=== PATIENT | female | born 1930 | race Caucasian/White ===

== ENCOUNTER → 2017-09-26 | Outpatient (CLI) | payer MEDICARE, OTHER | LOC: M RAD 12:31 | DX: R79.1 Abnormal coagulation profile (principal); R07.9 Chest pain, unspecified | CPT/HCPCS: 71046 ==

== ENCOUNTER 2018-02-25 07:21 | Day surgery (SDC) | payer MEDICARE, OTHER ==
[~2018-02-25 07:21] MED LIST: ACETAMINOPHEN 325 MG TAB PO; PHENYLEPHRINE HCL 10 % OPHTH. SOL 5ML OS; PROPARACAINE 0.5% OPHTH SOL 15ML OS
[2018-02-25] MEDS: TROPICAMIDE 1% OPHTH SOLN 2ML OS (07:48)
[2018-02-25] MEDS: PHENYLEPHRINE 2.5% OPHTH SOL 2ML OS (07:48)
[2018-02-25] MEDS: OFLOXACIN 0.3 % (OCUFLOX) OPTH SOL 5ML OS (07:48)
[2018-02-25] MEDS: LIDOCAINE 3.5 % 1ML OPHTH TOPICAL GEL OU (07:48)
[2018-02-25] MEDS: CYCLOPENTOLATE 2% OPHTH SOLN 2ML BTL OS (07:48)
[2018-02-25] MEDS: HEALON DUET PRO(HEALON 10MG/ML 0.55ML & HEALON ENDOCOAT 30MG/ML 0.85ML) As Ordered (09:53)
[2018-02-25] MEDS: BALANCED SALT IRRIGATION SOLUTION 500ML BAG (FOR OR EYE MACHINE) As Ordered (09:53)
[2018-02-25] MEDS: CEFUROXIME 1MG/0.1ML INTRACAMERAL INJ As Ordered (09:53)
[2018-02-25] MEDS: LIDOCAINE 1% SDV 5 ML VIAL As Ordered (09:53)
[2018-02-25] MEDS ORDERED: fentaNYL 100 MCG/2 ML INJECTION (J3010) As Ordered (10:14)
[2018-02-25] MEDS ORDERED: MIDAZOLAM INJ 2 MG/2 ML VIAL (J2250) As Ordered (10:14)
[2018-02-25] MEDS: AcetaZOLAMIDE 500 MG ER CAP PO (10:30)
[2018-02-25] MEDS ORDERED: TRIMETHOBENZAMIDE 300 MG CAP PO (10:30)
[2018-02-25] MEDS ORDERED: KETOROLAC 0.5% OPHTH SOLN OS (10:30)
[2018-02-25] MEDS ORDERED: POVIDONE-IODINE 5% OPHTH PREP SOL 30ML As Ordered (13:06)
== END 2018-02-25 11:00 | disposition home or self-care (01) ==
LOC: M SDC 07:21
DX: H25.12 Age-related nuclear cataract, left eye (principal); I10 Essential (primary) hypertension; K21.9 Gastro-esophageal reflux disease without esophagitis; Z79.899 Other long term (current) drug therapy; Z79.82 Long term (current) use of aspirin; Z88.8 Allergy status to other drugs, medicaments and biological substances
CPT/HCPCS: 66984

== ENCOUNTER 2018-03-18 09:59 | Day surgery (SDC) | payer MEDICARE, OTHER ==
[~2018-03-18 09:59] MED LIST changes: +MIDAZOLAM INJ 2 MG/2 ML VIAL (J2250) As Ordered; +PHENYLEPHRINE HCL 10 % OPHTH. SOL 5ML OD; -PHENYLEPHRINE HCL 10 % OPHTH. SOL 5ML OS; +PROPARACAINE 0.5% OPHTH SOL 15ML OD; -PROPARACAINE 0.5% OPHTH SOL 15ML OS; +fentaNYL 100 MCG/2 ML INJECTION (J3010) As Ordered
[2018-03-18] MEDS: OFLOXACIN 0.3 % (OCUFLOX) OPTH SOL 5ML OD (11:15)
[2018-03-18] MEDS: LIDOCAINE 3.5 % 1ML OPHTH TOPICAL GEL OU (11:15)
[2018-03-18] MEDS: TROPICAMIDE 1% OPHTH SOLN 2ML OD (11:15)
[2018-03-18] MEDS: PHENYLEPHRINE 2.5% OPHTH SOL 2ML OD (11:15)
[2018-03-18] MEDS: CYCLOPENTOLATE 2% OPHTH SOLN 2ML BTL OD (11:20)
[2018-03-18] MEDS: BALANCED SALT IRRIGATION SOLUTION 500ML BAG (FOR OR EYE MACHINE) As Ordered (12:27)
[2018-03-18] MEDS: CEFUROXIME 1MG/0.1ML INTRACAMERAL INJ As Ordered (12:28)
[2018-03-18] MEDS: LIDOCAINE 1% SDV 5 ML VIAL As Ordered (12:28)
[2018-03-18] MEDS: HEALON DUET PRO(HEALON 10MG/ML 0.55ML & HEALON ENDOCOAT 30MG/ML 0.85ML) As Ordered (12:28)
[2018-03-18] MEDS ORDERED: TRIMETHOBENZAMIDE 300 MG CAP PO (13:00)
[2018-03-18] MEDS: AcetaZOLAMIDE 500 MG ER CAP PO (13:10)
[2018-03-18] MEDS: KETOROLAC 0.5% OPHTH SOLN OD (13:10)
== END 2018-03-18 13:25 | disposition home or self-care (01) ==
LOC: M SDC 09:59
DX: H25.11 Age-related nuclear cataract, right eye (principal); I10 Essential (primary) hypertension; I25.10 Atherosclerotic heart disease of native coronary artery without angina pectoris; K59.00 Constipation, unspecified; K57.32 Diverticulitis of large intestine without perforation or abscess without bleeding; K21.9 Gastro-esophageal reflux disease without esophagitis; R23.3 Spontaneous ecchymoses; M19.90 Unspecified osteoarthritis, unspecified site; M54.9 Dorsalgia, unspecified; R20.0 Anesthesia of skin; F41.9 Anxiety disorder, unspecified; F32.9 Major depressive disorder, single episode, unspecified; R51 Headache; G47.9 Sleep disorder, unspecified; Z88.5 Allergy status to narcotic agent; Z88.6 Allergy status to analgesic agent; Z88.8 Allergy status to other drugs, medicaments and biological substances; Z79.899 Other long term (current) drug therapy; Z79.82 Long term (current) use of aspirin; Z87.820 Personal history of traumatic brain injury; Z87.440 Personal history of urinary (tract) infections; Z87.442 Personal history of urinary calculi
CPT/HCPCS: 66984

== ENCOUNTER → 2018-06-30 | Outpatient (CLI) | payer MEDICARE, OTHER ==
[~2018-06-30] MED LIST changes: -ACETAMINOPHEN 325 MG TAB PO; +ASPI1TAB PO; +ATIV1TAB7 PO; +CARV3.12 PO; +DULC5TAB PO; -MIDAZOLAM INJ 2 MG/2 ML VIAL (J2250) As Ordered; +PANT40TA3 PO; -PHENYLEPHRINE HCL 10 % OPHTH. SOL 5ML OD; -PROPARACAINE 0.5% OPHTH SOL 15ML OD; +TEMA15CA2 PO; +TRAM50TA2 PO; +XALA0.007 OU; -fentaNYL 100 MCG/2 ML INJECTION (J3010) As Ordered
== END ==
LOC: M LAB 15:45
PROVIDERS: ATTEND Ophthalmology
DX: I77.6 Arteritis, unspecified (principal)

== ENCOUNTER → 2018-07-29 | Outpatient (REF) | payer MEDICARE, OTHER ==
[~2018-07-29] MED LIST changes: -ASPI1TAB PO; +ASPI81TA26 PO
== END ==
LOC: M LAB REF 17:26
PROVIDERS: ATTEND Internal Medicine Nephrology
DX: N39.0 Urinary tract infection, site not specified (principal)

== ENCOUNTER 2018-11-02 08:49 | Day surgery (SDC) | payer OTHER ==
[~2018-11-02] VITALS: Ht 165.1 cm; Wt 53.5 kg
[~2018-11-02 08:49] MED LIST changes: +CYAN1000VL IM; +DICY20TA11 PO; +LIDOCAINE 2% INJ 100 MG/5 ML SDV (FOR ANES.) As Ordered ONE; +NEXI20CA PO; +NS 1,000 ML IV ONE; +PROPOFOL 200 MG/20 ML VIAL As Ordered ONE; +SERT25TA88 PO
--- NOTE | 2018-11-02 10:52 | ROOR ---
Patient Name: Kathy Renteria Procedure Date: 11/02/2018 9:56 AM Date of : 1930 Age: 88 Room: [facility] Gender: Female Note Status: Finalized Procedure: Upper GI endoscopy Indications: Dyspepsia, Weight loss Providers: Adonay Mccollum MD Referring MD: Dillon Boyd MD Requesting Provider: Medicines: Monitored Anesthesia Care Complications: No immediate complications. Procedure: Pre-Anesthesia Assessment: - Prior to the procedure, a History and Physical was performed, and patient medications and allergies were reviewed. The patient is competent. The risks and benefits of the procedure and the sedation options and risks were discussed with the patient. All questions were answered and informed consent was obtained. Patient identification and proposed procedure were verified by the physician, the nurse and the anesthesiologist in the procedure room. Mental Status Examination: alert and oriented. Airway Examination: normal oropharyngeal airway and neck mobility. Respiratory Examination: clear to auscultation. CV Examination: normal. Prophylactic Antibiotics: The patient does not require prophylactic antibiotics. Prior Anticoagulants: The patient has taken no previous anticoagulant or antiplatelet agents. ASA Grade Assessment: III - A patient with severe systemic disease. After reviewing the risks and benefits, the patient was deemed in satisfactory condition to undergo the procedure. The anesthesia plan was to use monitored anesthesia care (MAC). Immediately prior to administration of medications, the patient was re-assessed for adequacy to receive sedatives. The heart rate, respiratory rate, oxygen saturations, blood pressure, adequacy of pulmonary ventilation, and response to care were monitored throughout the procedure. The physical status of the patient was re-assessed after the procedure. The Endoscope was introduced through the mouth, and advanced to the second part of duodenum. The upper GI endoscopy was accomplished without difficulty. The patient tolerated the procedure well. Findings: The Z-line was regular and was found 40 cm from the incisors. A small hiatal hernia was present. Scattered moderate inflammation characterized by congestion (edema), erythema and granularity was found in the gastric antrum. Biopsies were taken with a cold forceps for Helicobacter pylori testing. Verification of patient identification for the specimen was done by the physician and nurse using the patient's name, date and medical record number. Estimated blood loss was minimal. A large non-bleeding diverticulum was found in the second portion of the duodenum. The exam of the duodenum was otherwise normal. Impression: - Z-line regular, 40 cm from the incisors. - Small hiatal hernia. - Gastritis. Biopsied. - Non-bleeding duodenal diverticulum. Recommendation: - Patient has a contact number available for emergencies. The signs and symptoms of potential delayed complications were discussed with the patient. Return to normal activities tomorrow. Written discharge instructions were provided to the patient. - High fiber diet. - Continue present medications. - Await pathology results. - Return to GI clinic 1 - 2 weeks. Please call GI clinic @ [phone] for apppointment date and time. - Return to primary care physician. Adonay Mccollum MD Adonay Mccollum MD 11/02/2018 10:52:05 AM Electronically signed by Adonay Mccollum MD Number of Addenda: 0 Note Initiated On: 11/02/2018 9:56 AM Estimated Blood Loss: Estimated blood loss was minimal.
--- NOTE | 2018-11-02 10:55 | ROOR ---
Patient Name: Kathy Renteria Procedure Date: 11/02/2018 9:56 AM Date of : 1930 Age: 88 Room: [facility] Gender: Female Note Status: Finalized Procedure: Colonoscopy Indications: Abnormal CT of the GI tract, Weight loss Providers: Adonay Mccollum MD Referring MD: Dillon Boyd MD Requesting Provider: Medicines: Monitored Anesthesia Care Complications: No immediate complications. Procedure: Pre-Anesthesia Assessment: - Prior to the procedure, a History and Physical was performed, and patient medications and allergies were reviewed. The patient is competent. The risks and benefits of the procedure and the sedation options and risks were discussed with the patient. All questions were answered and informed consent was obtained. Patient identification and proposed procedure were verified by the physician, the nurse and the anesthesiologist in the procedure room. Mental Status Examination: alert and oriented. Airway Examination: normal oropharyngeal airway and neck mobility. Respiratory Examination: clear to auscultation. CV Examination: normal. Prophylactic Antibiotics: The patient does not require prophylactic antibiotics. Prior Anticoagulants: The patient has taken no previous anticoagulant or antiplatelet agents. ASA Grade Assessment: III - A patient with severe systemic disease. After reviewing the risks and benefits, the patient was deemed in satisfactory condition to undergo the procedure. The anesthesia plan was to use monitored anesthesia care (MAC). Immediately prior to administration of medications, the patient was re-assessed for adequacy to receive sedatives. The heart rate, respiratory rate, oxygen saturations, blood pressure, adequacy of pulmonary ventilation, and response to care were monitored throughout the procedure. The physical status of the patient was re-assessed after the procedure. The Colonoscope was introduced through the anus and advanced to the terminal ileum, with identification of the appendiceal orifice and IC valve. The colonoscopy was performed without difficulty. The patient tolerated the procedure well. The quality of the bowel preparation was good. The terminal ileum, ileocecal valve, appendiceal orifice, and rectum were photographed. Scope insertion time was 4 minutes. Scope withdrawal time was 8 minutes. The total duration of the procedure was 14 minutes. Findings: The perianal and digital rectal examinations were normal. The terminal ileum appeared normal. Three sessile polyps were found in the ascending colon. The polyps were 5 to 8 mm in size. These polyps were removed with a cold snare. Resection and retrieval were complete. Verification of patient identification for the specimen was done by the physician and nurse using the patient's name, date and medical record number. Estimated blood loss was minimal. Multiple small and large-mouthed diverticula were found from sigmoid to cecum. There was no evidence of diverticular bleeding. Non-bleeding external and internal hemorrhoids were found during retroflexion. The hemorrhoids were medium-sized. Impression: - The examined portion of the ileum was normal. - Three 5 to 8 mm polyps in the ascending colon, removed with a cold snare. Resected and retrieved. - Severe diverticulosis from sigmoid to cecum. There was no evidence of diverticular bleeding. - Non-bleeding external and internal hemorrhoids. Recommendation: - Patient has a contact number available for emergencies. The signs and symptoms of potential delayed complications were discussed with the patient. Return to normal activities tomorrow. Written discharge instructions were provided to the patient. - High fiber diet. - Continue present medications. - Await pathology results. - Repeat colonoscopy is not recommended due to current age (66 years or older) depending on clinical and functional status. - Return to GI clinic 1 - 2 weeks. Please call GI clinic @ [phone] for apppointment date and time. - Return to primary care physician. Adonay Mccollum MD Adonay Mccollum MD 11/02/2018 10:54:38 AM Electronically signed by Adonay Mccollum MD Number of Addenda: 0 Note Initiated On: 11/02/2018 9:56 AM Estimated Blood Loss: Estimated blood loss was minimal.
[2018-11-02 11:15] VITALS: BP 183/84
== END 2018-11-02 11:31 | disposition home or self-care (01) ==
LOC: M OPP 08:49
PROVIDERS: ATTEND Internal Medicine Gastroenterology
DX: D12.2 Benign neoplasm of ascending colon (principal); K57.30 Diverticulosis of large intestine without perforation or abscess without bleeding; K64.8 Other hemorrhoids; K44.9 Diaphragmatic hernia without obstruction or gangrene; K29.70 Gastritis, unspecified, without bleeding; K57.10 Diverticulosis of small intestine without perforation or abscess without bleeding; R93.3 Abnormal findings on diagnostic imaging of other parts of digestive tract; R63.4 Abnormal weight loss; R10.13 Epigastric pain